=== PATIENT | female | born 1970 | race Caucasian/White ===

== ENCOUNTER 2019-06-03 16:43 | Emergency (ER) | payer OTHER ==
[~2019-06-03] VITALS: Ht 160 cm; Wt 94.3 kg
[~2019-06-03 16:43] MED LIST: ACETAMINOPHEN-1 EAC1 PO; AMOXICILLIN 50500 M1 PO; CLONAZEPAM PO; GABAPENTIN; IBUPROFEN 600600 M1 PO; MOBIC15 MG PO; NAPROSYN500 MG PO; NORCO 5-325 TA1 EACH PO; OMEPRAZOLE 20 M20 M1 PO; PROZAC; REXULTI1 MG PO; SEROQUEL 100 M100 M1 PO; TOPAMAX200 MG PO; VALIUM2 MG PO; VICODIN PO; WELLBUTRIN 100100 MG NG
[2019-06-03] MEDS ORDERED: IRON325 PO (17:09)
[2019-06-03] MEDS ORDERED: OXYBUTYNIN 5 MG5 M2 PO (17:10)
[2019-06-03] MEDS ORDERED: PREGABALIN75 MG PO (17:10)
[2019-06-03] MEDS ORDERED: RIZATRIPTAN5 MG PO (17:11)
[2019-06-03] MEDS ORDERED: PROZAC 10 MG CA10 MG PO (17:11)
[2019-06-03 17:39] LABS: URINE BILIRUBIN NEGATIVE (Negative); URINE BLOOD NEGATIVE (Negative); URINE CLARITY CLEAR; URINE COLOR YELLOW; URINE GLUCOSE-RANDOM* NEGATIVE (Negative); URINE KETONES NEGATIVE (Negative); URINE LEUKOCYTES-REFLEX NEGATIVE (Negative); URINE NITRITE-REFLEX NEGATIVE (Negative); URINE PROTEIN (DIPSTICK) NEGATIVE (Negative); URINE UROBILINOGEN 0.2 E.U./dl (0.2-1.0)
[2019-06-03 18:31] LABS: ABSOLUTE NEUTROPHILS 5.7 thou/uL (1.4-8.2); BASOPHILS 0.4 % (0.0-2.0); EOSINOPHILS 1.2 % (0.0-3.0); HEMATOCRIT 40.8 % (37.0-47.0); HEMOGLOBIN 13.7 gm/dL (12.0-15.0); LYMPHOCYTES 29.4 % (24.0-44.0); MCH 31.1 pg (26.0-34.0); MCHC 33.6 g/dL (28.0-37.0); MCV 92.7 fL (80.0-100.0); MONOCYTES 4.7 % (1.0-8.0); PLATELET COUNT 197 thou/uL (150-400); POLYS 64.3 % (36.0-66.0); RDW 13.2 % (10.5-14.5); WBC 8.9 thou/uL (4.0-11.0)
[2019-06-03 18:40] LABS: CALCIUM 9.3 mg/dL (8.5-10.1); CREATININE 0.8 mg/dL (0.6-1.0); POTASSIUM 3.5 mmol/L (3.5-5.1)
[2019-06-03 18:45] LABS: ALBUMIN 3.7 g/dL (3.4-5.0); TOTAL BILIRUBIN 0.2 mg/dL (<0.1-1.0); TOTAL PROTEIN 7.8 g/dL (6.4-8.2)
[2019-06-03] MEDS ORDERED: NORCO 5-325 TA1 EAC1 PO (20:03)
[2019-06-03 20:30] VITALS: BP 116/77
== END 2019-06-03 20:30 | disposition home or self-care (01) ==
LOC: ER 16:43
PROVIDERS: Physician Assistant
DX: R41.3 Other amnesia (principal); M79.672 Pain in left foot; K14.6 Glossodynia; M54.9 Dorsalgia, unspecified; R44.1 Visual hallucinations; F17.210 Nicotine dependence, cigarettes, uncomplicated; Z90.49 Acquired absence of other specified parts of digestive tract; Z98.51 Tubal ligation status; Z79.899 Other long term (current) drug therapy; Z91.040 Latex allergy status

== ENCOUNTER 2019-06-18 10:57 | Emergency (ER) | payer OTHER ==
[~2019-06-18] VITALS: Ht 160 cm; Wt 90.7 kg
[~2019-06-18 10:57] MED LIST changes: +IRON325 PO; +NORCO 5-325 TA1 EAC1 PO; +OXYBUTYNIN 5 MG5 M2 PO; +PREGABALIN75 MG PO; +PROZAC 10 MG CA10 MG PO; +RIZATRIPTAN5 MG PO
[2019-06-18] MEDS ORDERED: MOBIC15 MG PO (12:06)
[2019-06-18 12:26] VITALS: BP 133/60
== END 2019-06-18 12:26 | disposition home or self-care (01) ==
LOC: ER 10:57
DX: M54.2 Cervicalgia (principal); F17.210 Nicotine dependence, cigarettes, uncomplicated; Z91.040 Latex allergy status; Z79.899 Other long term (current) drug therapy; Z98.890 Other specified postprocedural states; Z90.49 Acquired absence of other specified parts of digestive tract; Z98.51 Tubal ligation status

== ENCOUNTER 2020-02-13 10:39 | Emergency (ER) | payer OTHER ==
[~2020-02-13] VITALS: Ht 160 cm; Wt 76.2 kg
[2020-02-13] MEDS ORDERED: NAPROSYN500 MG PO (12:58)
[2020-02-13] MEDS ORDERED: NORFLEX100 MG PO (12:58)
[2020-02-13 13:04] VITALS: BP 110/66
== END 2020-02-13 13:20 | disposition home or self-care (01) ==
LOC: ER 10:39
DX: M26.622 Arthralgia of left temporomandibular joint (principal); H53.453 Other localized visual field defect, bilateral; G44.209 Tension-type headache, unspecified, not intractable; F17.210 Nicotine dependence, cigarettes, uncomplicated; Z90.49 Acquired absence of other specified parts of digestive tract; Z86.2 Personal history of diseases of the blood and blood-forming organs and certain disorders involving the immune mechanism; Z79.1 Long term (current) use of non-steroidal anti-inflammatories (NSAID); Z79.899 Other long term (current) drug therapy; Z91.040 Latex allergy status

== ENCOUNTER 2020-04-18 19:08 | Emergency (ER) | payer OTHER ==
[~2020-04-18] VITALS: Ht 160 cm; Wt 99.3 kg
[~2020-04-18 19:08] MED LIST changes: +NORFLEX100 MG PO
[2020-04-18] MEDS ORDERED: HYDROXYZINE HCL25 M2 PO (19:26)
[2020-04-18] MEDS ORDERED: TRAMADOL HCL50 MG PO (19:27)
[2020-04-18] MEDS ORDERED: NAPROSYN500 MG PO (20:35)
[2020-04-18] MEDS ORDERED: TYLENOL325 M1 PO (20:35)
[2020-04-18 20:47] VITALS: BP 136/74
== END 2020-04-18 20:47 | disposition home or self-care (01) ==
LOC: ER 19:08
DX: M54.5 Low back pain (principal); M54.6 Pain in thoracic spine; M25.512 Pain in left shoulder; M25.511 Pain in right shoulder; M25.59 Pain in other specified joint; M54.2 Cervicalgia; M81.0 Age-related osteoporosis without current pathological fracture; F31.9 Bipolar disorder, unspecified; M54.9 Dorsalgia, unspecified; F17.210 Nicotine dependence, cigarettes, uncomplicated; Z98.51 Tubal ligation status; Z98.890 Other specified postprocedural states; Z90.49 Acquired absence of other specified parts of digestive tract; Z79.899 Other long term (current) drug therapy; Z91.040 Latex allergy status

== ENCOUNTER 2020-10-23 17:45 | Emergency (ER) | payer OTHER ==
[~2020-10-23] VITALS: Ht 160 cm; Wt 72.6 kg
[~2020-10-23 17:45] MED LIST changes: +HYDROXYZINE HCL25 M2 PO; +TRAMADOL HCL50 MG PO; +TYLENOL325 M1 PO
[2020-10-23 17:50] VITALS: BP 146/85
== END 2020-10-23 20:41 | disposition home or self-care (01) ==
LOC: ER 17:45
DX: M25.552 Pain in left hip (principal); F31.9 Bipolar disorder, unspecified; F17.210 Nicotine dependence, cigarettes, uncomplicated; Z90.49 Acquired absence of other specified parts of digestive tract; Z79.899 Other long term (current) drug therapy; Z79.1 Long term (current) use of non-steroidal anti-inflammatories (NSAID); Z91.040 Latex allergy status